=== PATIENT | female | born 1980 | race Caucasian/White ===

== ENCOUNTER → 2016-10-03 | Day surgery (SDC) | payer SELFPAY ==
[~2016-10-03] VITALS: Ht 180.3 cm; Wt 147.0 kg
[~2016-10-03] MED LIST: *morphine SULFATE 8 MG/ML PERIprocedure ONLY ONE; ACETAMINOPHEN 1000 MG/100 ML VIAL IV PRN; ACETAMINOPHEN 1000 MG/100 ML VIAL IV SCH; ACETAMINOPHEN 325MG/HYDROcodone 7.5MG/15ML UDC PO PRN; APREPITANT 40 MG CAP PO SCH; BUPIVACAINE/EPINEPHRINE 0.25% PF 30 ML VIAL ONE; CITA40TA4 PO; D5-1/2 NS + KCL 20 MEQ INJ 1,000 ML IV SCH; DEXAMETHASONE SOD PHOS 4 MG/ML VIAL ONE; DO NOT ADM ANY ANTICOAGULANT DRUGS XX PRN; ENALAPRILAT 1.25 MG/ML VIAL IV PUSH PRN; ENOXAPARIN SODIUM 40 MG/0.4 ML SYRINGE SQ SCH; FAMOTIDINE 20 MG/2 ML VIAL ONE; HYDROmorphone HCL PF 1 MG/ML VIAL IV PUSH PRN; INSULIN HUMAN REGULAR 1,000 UNITS/10 ML VIAL SQ PRN; LACTATED RINGER'S 1000 ML INJ 1,000 ML IV ONE; LACTATED RINGER'S 1000 ML IV SCH; METHYLENE BLUE 100 MG/10 ML VIAL NG ONE; METOCLOPRAMIDE HCL 10 MG/2 ML VIAL IVS PRN; METOCLOPRAMIDE HCL 10 MG/2 ML VIAL IVS SCH; METOPROLOL TARTRATE 25 MG TAB PO PRN; MIDAZOLAM HCL 2 MG/2 ML VIAL ONE; NEOSTIGMINE 3 MG/3 ML SYR IV ONE; ONDANSETRON HCL 4 MG/2 ML VIAL IV PRN; ONDANSETRON HCL 4 MG/2 ML VIAL IV PUSH ONE; ONDANSETRON HCL 4 MG/2 ML VIAL IV PUSH SCH; PANT40TA3 PO; PANTOPRAZOLE SOD 40 MG DELAYED RELEASE TAB PO SCH; PANTOPRAZOLE SODIUM 40 MG VIAL IVP SCH; PANTOPRAZOLE SODIUM 40 MG VIAL ONE; PHENYLEPH/NS 1000 MCG/10 ML SYR IV ONE; PROPOFOL 200 MG/20 ML AMP IV ONE; Post-op Orders (for Pharmacy) MISC XX ONE; REMOVE OLD DURAGESIC (FENTANYL) PATCH TD SCH; RESP: ALBUTEROL 2.5 MG/3 ML NEB (SCH) INH; SCOPOLAMINE 1.5 MG PATCH T-DERMAL SCH; SODIUM CHLORID 0.9% 500 ML IV SCH; SODIUM CHLORIDE 0.9% FLUSH 5 ML FLUSH IVF PRN; SODIUM CHLORIDE 0.9% FLUSH 5 ML FLUSH IVF SCH; VERA1TAB17 PO; VITA100064 PO; ceFAZolin 2 GM PREMIX 50 ML IV SCH; diphenhydrAMINE HCL 50 MG/ML VIAL IV PRN; diphenhydrAMINE HCL ELIXIR 12.5 MG/5 ML CUP PO PRN; ePHEDrine/NS 50 MG/5 ML SYR IV ONE; fentaNYL 25 MCG/HR PATCH TD ONE; fentaNYL CITRATE 250 MCG/5 ML AMP ONE; metroNIDAZOLE 500 MG INJ 100 ML IV SCH
[2016-10-03 06:25] VITALS: BP 121/83; PULSE 86; RESP 16; TEMP 97.5; O2SAT 95
[2016-10-03 16:00] VITALS: BP 119/72; PULSE 79; RESP 20; TEMP 97.3; O2SAT 95
--- NOTE | 2016-10-09 10:30 | MP ---
cc: MICKEY SHIN DATE OF SURGERY: 10/03/2016 PREOPERATIVE DIAGNOSIS: Morbid obesity with a BMI of 45. POSTOPERATIVE DIAGNOSIS: Morbid obesity with a BMI of 45. OPERATIVE PROCEDURE PERFORMED: Laparoscopic vertical sleeve gastrectomy over a 36-[place] ViSiGi bougie. SURGEON: Mickey Shin MD. ANESTHESIA: General endotracheal anesthesia. ESTIMATED BLOOD LOSS: Scant. FINDINGS: Fatty liver. SPECIMENS: None. COMPLICATIONS: None. DESCRIPTION OF THE PROCEDURE IN DETAIL: The patient was brought to the operating room and placed on the operating table in supine position, bilateral sequential inflation device placed on lower extremities. General anesthesia was instituted. Antibiotics was initiated. The abdomen was prepped and draped sterilely. A point 15 cm distal to the xiphoid in the midline was anesthetized with 0.25% Marcaine with epinephrine. A skin incision was made, 5-mm OptiView port placed under direct vision and pneumoperitoneum created. Under direct vision, three 5-mm left upper quadrant, a 15-mm right upper quadrant, 5-mm right upper quadrant ports placed. Prior to placement of all ports the skin and peritoneum were anesthetized with 0.25% Marcaine with epinephrine. The patient was placed in reverse Trendelenburg position left side up, the Jory-Flex retractor was placed. The left lobe of the liver was retracted. The vasculature along the greater curvature of the stomach was using harmonic scalpel starting a distance 5-cm proximal to the pylorus and carried towards the angle of His. The angle of His was taken down bluntly. Posterior ligamentous attachments were sharply . A 36-[place] ViSiGi bougie was placed at the start of the case, was placed on suction. Division of the stomach started 5 cm proximal to the pylorus and carried towards the angle of His to completely excise approximately 80% of the stomach. This was performed using an [place] Flex stapler at the pylorus. The first firing was with a black load, followed by a green load and four gold loads. All staple loads were reinforced with SeamGuard. A distance of 2 cm was left from the angle incisura and the staple line and a distance of 1 cm left from the GE junction and the staple line. The pylorus was then occluded, methylene blue tinged saline was instilled. There was no evidence of extravasation. The gastrocolic ligament was then sutured to the posterior leaflet of the SeamGuard using a 2-0 Vicryl suture in a running manner. Bleeding points were controlled with Evicel. The excised stomach was removed from the peritoneal cavity through the 15-mm port site in an Endopouch. The fascia at the 15-mm port site was approximated with 0 Vicryl suture. The CO2 was then released, all ports were removed, all skin incisions closed with 4-0 Monocryl. The abdominal wall was cleaned. A sterile dressing was placed. The patient was awakened and taken to the recovery room. MD SHELL Cruz/NAILA /8:40 AM /10:27 AM
--- NOTE | 2016-11-29 16:21 | HHI.DS ---
Discharge Summary Admission Date Discharge Date: Oct 03, 2016 Admitting Diagnosis Brief History 36 year old female s/p vertical sleeve gastrectomy PE at Discharge Alert and awake Respiratory: Clear to auscultation bilaterally Cardiac: Regular rate and rhythm Abdomen: lap sites clean dry and intact; postop tenderness Hospital Course This is a 36-year-old female with a BMI of greater than 45 and hypertension. The patient had a laparoscopic vertical sleeve gastrectomy. The patient's pain was controlled using oral pain medication. The patient was able to tolerate a bariatric diet. The patient will follow-up in the office as indicated on the discharge information. Mayra SOLOMON acting as scribe for Dr. Vincent ANGELES Pt Condition on Discharge: Good Discharge Disposition: Discharge Home Discharge Instructions DIET: Follow Instructions for: Gastric Bypass Additional Diet Instructions: FOLLOW BARIATRIC POST OP DIET INSTRUCTIONS Activities you can perform: Regular-No Restrictions Activities to Avoid: Lifting/Bending, Prolonged Standing, Strenuous Activity, Driving Patty Jacobo Nov 29, 2016 16:21
== END | disposition home or self-care (01) ==
LOC: HSDC 05:35 → EDSTATUS 09:30
PROVIDERS: ATTEND Surgery
DX: E66.01 Morbid (severe) obesity due to excess calories (principal); Z68.42 Body mass index [BMI] 45.0-49.9, adult
CPT/HCPCS: 00797; 43775; C9113; J0131; J1100; J2250; J2270; J2370; J2405; J2710; J2765; J3010; J3480; J7120; J8501